=== PATIENT | male | born 1980 ===

== ENCOUNTER 2018-01-28 23:22 | Emergency (ER) | payer MEDICAID ==
[2018-01-28 23:48] VITALS: PULSE 81; RESP 16; TEMP 98.6; O2SAT 98
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
[2018-01-29] MEDS ORDERED: Tdap Vaccine 0.5 ml Vial (10-64 yrs) IM ONE ×2 (00:27→01:08)
[2018-01-29 01:48] VITALS: BP 142/78
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
== END 2018-01-29 01:56 | disposition home or self-care (01) ==
LOC: H.ER 23:22
DX: S01.01XA Laceration without foreign body of scalp, initial encounter (principal); W22.8XXA Striking against or struck by other objects, initial encounter; Y92.89 Other specified places as the place of occurrence of the external cause

== ENCOUNTER 2018-08-01 19:29 | Observation (INO) | payer MEDICAID ==
[2018-08-01] MEDS ORDERED: Sodium Chloride 0.9% 250 ML IV STA (20:06)
[2018-08-01 21:10] LABS: BASO % 0.5 % (0.0-2.0); EOS # 0.1 K/uL (0.0-0.7); EOS % 1.4 % (0.0-4.0); HEMOGLOBIN 13.3 g/dL (12.0-18.0); LYMPH # 1.6 K/uL (1.0-4.3); LYMPH % 21.2 % (20.0-40.0); MEAN CELL VOLUME 83.4 fl (80.0-94.0); MEAN CORPUSCULAR HEMOGLOBIN 28.2 pg (27.0-31.0); MEAN CORPUSCULAR HGB CONC 33.8 g/dL (33.0-37.0); MONO # 0.4 K/uL (0.0-0.8); NEUT # 5.2 K/uL (1.8-7.0); NEUT % 70.9 % (50.0-75.0); NRBC % 0.1 % (0.0-0.0); RBC 4.73 Mil/uL (4.40-5.90); RED CELL DISTRIBUTION WIDTH 13.2 % (11.5-14.5); WHITE BLOOD COUNT 7.3 K/uL (4.8-10.8)
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
[2018-08-01 21:19] LABS: ALB/GLOB RATIO 1.3 (1.0-2.1); ALBUMIN 4.4 g/dL (3.5-5.0); ALT/SGPT 26 U/L (21-72); AST/SGOT 25 U/L (17-59); BLOOD UREA NITROGEN 14 mg/dl (9-20); CALCIUM 9.1 mg/dL (8.4-10.2); GFR NON-AFRICAN AMERICAN > 60
[2018-08-01] MEDS ORDERED: levETIRAcetam 1,000 MG in Sodium Chloride 0.9% 100 ML IVPB ONE (22:04)
[2018-08-01] MEDS ORDERED: Benzoin Compund Tincture 30 ML TP ONE (22:10)
[2018-08-01] MEDS ORDERED: Insulin Regular 100 units/ml SC STA (22:25)
[2018-08-01] MEDS ORDERED: Metoprolol 1 mg/ml Inj IVP STA (22:26)
[2018-08-01] MEDS ORDERED: Metoprolol 1 mg/ml Inj ONE (23:32)
[2018-08-02] MEDS: Insulin Regular 100 units/ml SC SCH ×5 (02:05→23:00)
[2018-08-02 07:48] LABS: HEMOGLOBIN 12.5 g/dL (12.0-18.0); MEAN CELL VOLUME 83.3 fl (80.0-94.0); MEAN CORPUSCULAR HEMOGLOBIN 28.1 pg (27.0-31.0); MEAN CORPUSCULAR HGB CONC 33.7 g/dL (33.0-37.0); RBC 4.46 Mil/uL (4.40-5.90)
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
[2018-08-02 08:00] LABS: LDL CHOLESTEROL 108 mg/dL (0-129)
[2018-08-02 08:16] LABS: ALB/GLOB RATIO 1.3 (1.0-2.1); ALBUMIN 4.4 g/dL (3.5-5.0); ALT/SGPT 37 U/L (21-72); AST/SGOT 27 U/L (17-59); BLOOD UREA NITROGEN 11 mg/dl (9-20); CALCIUM 8.7 mg/dL (8.4-10.2); GFR NON-AFRICAN AMERICAN > 60; HDL CHOLESTEROL 50 MG/DL (30-70)
[2018-08-02] MEDS ORDERED: AMLODIPINE BESYLATE PO SCH (09:00)
--- NOTE | 2018-08-02 09:19 | RAD ---
Date of service: 08/01/2018 HISTORY: seizure COMPARISON: 12/12/2014 TECHNIQUE: 1 view obtained. FINDINGS: LUNGS: No active pulmonary disease. PLEURA: No significant pleural effusion identified, no pneumothorax apparent. CARDIOVASCULAR: No aortic atherosclerotic calcification present. Normal cardiac size. No pulmonary vascular congestion. OSSEOUS STRUCTURES: No significant abnormalities. VISUALIZED UPPER ABDOMEN: Normal. OTHER FINDINGS: None. IMPRESSION: No active disease.
[2018-08-02] MEDS: Pantoprazole 40 mg EC Tab PO SCH (10:36)
--- NOTE | 2018-08-02 11:54 | CARD ---
APPROVED REPORT Date of service: 08/01/2018 EKG Measurement Heart [id number] <Conclusion> Normal sinus rhythm Normal ECG
[2018-08-02] MEDS ORDERED: Insulin Regular 100 units/ml ONE (13:16)
--- NOTE | 2018-08-02 15:08 | CP.PCM.HP ---
History of Present Illness - History of Present Illness History of Present Illness: CC: Seizure. 38 y/o M, PMHx: HTN, Seizure, DMII, Depression. Pt was brought to [facility] on 08/01/18 via EMS to be evaluated for Seizure activity that last about a minute while at home, witnessed by in AM DOA, with associated LOC post ictal, headache, restless, confused, with not improvement. As per , last onset was 1 year ago. Worsening symptoms: Head laceration (2cm to scalp), nausea. Pt fell 2nd to seizure activity hitting his head against the wall. Aggravated factor: Pt missed his Seizure medication dose in AM on onset date. Denied: fever, chills, vomiting, diarrhea, abdominal pain, urinary symptoms, CP, palpitations, SOB, cough, sick contact, recent travel out of [facility]. CXR: No active disease. Head CT: No acute intracranial activity. EKG: Normal sinus rhythm. Present on Admission - Present on Admission Any Indicators Present on Admission: No Review of Systems - Constitutional Constitutional: Malaise, Weakness - EENT Eyes: Other (negative) Ears: Other (negative) Nose/Mouth/Throat: Other (negative) - Cardiovascular Cardiovascular: Rapid Heart Rate - Respiratory Respiratory: Other (negative) - Gastrointestinal Gastrointestinal: Nausea - Genitourinary Genitourinary: Other (negative) - Musculoskeletal Musculoskeletal: Other (Head pain 2nd to laceration.) - Integumentary Integumentary: Lesions - Neurological Neurological: Confusion, Memory Loss (post ictal), Syncope - Psychiatric Psychiatric: Other (negative) - Endocrine Endocrine: Other (negative) - Hematologic/Lymphatic Hematologic: Other (negative) Past Patient History - Past Medical History & Family History Pertinent Family History: Unknown - Past Social History Alcohol: None Drugs: Denies Home Situation {Lives}: With Family - CARDIAC Hx Cardiac Disorders: Yes Hx Hypertension: Yes - PULMONARY Hx Respiratory Disorders: No - NEUROLOGICAL Hx Neurological Disorder: Yes Hx Seizures: Yes - HEENT Hx HEENT Problems: No - RENAL Hx Chronic Kidney Disease: No - ENDOCRINE/METABOLIC Hx Endocrine Disorders: Yes Hx Diabetes Mellitus Type 2: Yes - HEMATOLOGICAL/ONCOLOGICAL Hx Blood Disorders: No - INTEGUMENTARY Hx Dermatological Problems: Yes Other/Comment: Scalp Dermatitis - MUSCULOSKELETAL/RHEUMATOLOGICAL Hx Musculoskeletal Disorders: No Hx Falls: No - GASTROINTESTINAL Hx Gastrointestinal Disorders: No - GENITOURINARY/GYNECOLOGICAL Hx Genitourinary Disorders: No - PSYCHIATRIC Hx Psychophysiologic Disorder: Yes Hx Depression: Yes - SURGICAL HISTORY Hx Surgeries: Yes Other/Comment: R Cranetomy - ANESTHESIA Hx Anesthesia: Yes Hx Anesthesia Reactions: No Meds Allergies/Adverse Reactions: Allergies Allergy/AdvReac Type Severity Reaction Status Date / Time No Known Allergies Allergy Verified 01/28/18 23:44 Physical Exam - Constitutional Appears: No Acute Distress - Head Exam Additional comments: Superficial laceration upper parietal scalp. - Eye Exam Eye Exam: PERRL - ENT Exam ENT Exam: Normal Exam - Neck Exam Neck exam: Positive for: Normal Inspection - Respiratory Exam Respiratory Exam: NORMAL BREATHING PATTERN - Cardiovascular Exam Cardiovascular Exam: REGULAR RHYTHM - GI/Abdominal Exam GI & Abdominal Exam: Normal Bowel Sounds, Soft - Extremities Exam Extremities exam: Positive for: normal inspection - Back Exam Back exam: NORMAL INSPECTION - Neurological Exam Neurological exam: Alert, CN II-XII Intact, Oriented x3, Reflexes Normal Additional comments: no motor/sensory deficit, no facial droop. - Psychiatric Exam Psychiatric exam: Normal Mood - Skin Skin Exam: Abrasion (to scalp), Dry, Warm Results - Vital Signs Recent Vital Signs: Last Vital Signs Temp 98.2 F 08/02/18 07:58 Pulse 96 H 08/02/18 10:33 Resp 18 08/02/18 07:58 BP 142/93 H 08/02/18 10:33 Pulse Ox 96 08/02/18 10:53 reviewed Liza - Labs Result Diagrams: 08/02/18 07:15 08/02/18 07:15 Labs: Laboratory Results - last 24 hr 08/01/18 08/01/18 08/01/18 20:41 21:06 21:06 WBC 7.3 RBC 4.73 Hgb 13.3 Hct 39.5 MCV 83.4 D MCH 28.2 MCHC 33.8 RDW 13.2 Plt Count 235 MPV 10.0 Neut % (Auto) 70.9 Lymph % (Auto) 21.2 [place] % (Auto) 6.0 Eos % (Auto) 1.4 Baso % (Auto) 0.5 Neut # (Auto) 5.2 Lymph # (Auto) 1.6 [place] # (Auto) 0.4 Eos # (Auto) 0.1 Baso # (Auto) 0.0 Sodium 139 Potassium 3.6 Chloride 100 Carbon Dioxide 24 Anion Gap 19 BUN 14 Creatinine 0.9 Est GFR ( Amer) > 60 Est GFR (Non-Af Amer) > 60 POC Glucose (mg/dL) 199 H Random Glucose 177 H Hemoglobin A1c Calcium 9.1 Phosphorus 2.8 Magnesium 2.0 Total Bilirubin 0.3 AST 25 ALT 26 Alkaline Phosphatase 54 Total Protein 8.0 Albumin 4.4 Globulin 3.5 Albumin/Globulin Ratio 1.3 Triglycerides Cholesterol LDL Cholesterol Direct HDL Cholesterol Thyroxine (T4) TSH 3rd Generation Carbamazepine 08/01/18 08/01/18 08/02/18 21:39 21:45 07:15 WBC RBC Hgb Hct MCV MCH MCHC RDW Plt Count MPV Neut % (Auto) Lymph % (Auto) [place] % (Auto) Eos % (Auto) Baso % (Auto) Neut # (Auto) Lymph # (Auto) [place] # (Auto) Eos # (Auto) Baso # (Auto) Sodium 139 Potassium 3.5 L Chloride 103 Carbon Dioxide 25 Anion Gap 15 BUN 11 Creatinine 0.8 Est GFR ( Amer) > 60 Est GFR (Non-Af Amer) > 60 POC Glucose (mg/dL) 249 H Random Glucose 123 H Hemoglobin A1c Calcium 8.7 Phosphorus Magnesium Total Bilirubin 0.3 AST 27 ALT 37 Alkaline Phosphatase 54 Total Protein 7.8 Albumin 4.4 Globulin 3.4 Albumin/Globulin Ratio 1.3 Triglycerides 138 Cholesterol 176 LDL Cholesterol Direct 108 HDL Cholesterol 50 Thyroxine (T4) 6.34 TSH 3rd Generation 2.44 Carbamazepine < 3.0 L 08/02/18 08/02/18 08/02/18 07:15 07:15 07:51 WBC 8.0 RBC 4.46 Hgb 12.5 Hct 37.1 MCV 83.3 MCH 28.1 MCHC 33.7 RDW 14.0 Plt Count 225 MPV Neut % (Auto) Lymph % (Auto) [place] % (Auto) Eos % (Auto) Baso % (Auto) Neut # (Auto) Lymph # (Auto) [place] # (Auto) Eos # (Auto) Baso # (Auto) Sodium Potassium Chloride Carbon Dioxide Anion Gap BUN Creatinine Est GFR ( Amer) Est GFR (Non-Af Amer) POC Glucose (mg/dL) 131 H Random Glucose Hemoglobin A1c 7.3 H Calcium Phosphorus Magnesium Total Bilirubin AST ALT Alkaline Phosphatase Total Protein Albumin Globulin Albumin/Globulin Ratio Triglycerides Cholesterol LDL Cholesterol Direct HDL Cholesterol Thyroxine (T4) TSH 3rd Generation Carbamazepine 08/02/18 13:12 WBC RBC Hgb Hct MCV MCH MCHC RDW Plt Count MPV Neut % (Auto) Lymph % (Auto) [place] % (Auto) Eos % (Auto) Baso % (Auto) Neut # (Auto) Lymph # (Auto) [place] # (Auto) Eos # (Auto) Baso # (Auto) Sodium Potassium Chloride Carbon Dioxide Anion Gap BUN Creatinine Est GFR ( Amer) Est GFR (Non-Af Amer) POC Glucose (mg/dL) 179 H Random Glucose Hemoglobin A1c Calcium Phosphorus Magnesium Total Bilirubin AST ALT Alkaline Phosphatase Total Protein Albumin Globulin Albumin/Globulin Ratio Triglycerides Cholesterol LDL Cholesterol Direct HDL Cholesterol Thyroxine (T4) TSH 3rd Generation Carbamazepine reviewed J.P. - EKG Data EKG comments: reviewed J.P. - Imaging and Cardiology Chest x-ray Status: Report reviewed by me (Liza) CT scan - head Status: Report reviewed by me (DavidePJhon) Assessment & Plan (1) Recurrent seizures Status: Acute Priority: High (2) Scalp laceration Status: Acute Priority: High (3) Hyperglycemia Status: Acute Priority: High (4) DMII (diabetes mellitus, type 2) Status: Chronic Priority: High (5) HTN (hypertension) Status: Chronic Priority: High - Assessment and Plan (Free Text) Plan: F/U EEG, continue Keppra, Coreg, Tricor, Insulin and rest of Tx. Neurology consult. - Date & Time Date: 08/02/18 Time: 13:30
[2018-08-03] MEDS: Insulin Regular 100 units/ml SC SCH ×2 (06:47→12:56)
[2018-08-03] MEDS ORDERED: Ergocalciferol 50,000 Intl Units Cap PO SCH (07:00)
[2018-08-03 07:52] VITALS: RESP 20
[2018-08-03] MEDS: Pantoprazole 40 mg EC Tab PO SCH (09:25)
--- NOTE | 2018-08-03 11:02 | PCM.EEG ---
Electroencephalogram Report - Electroencephalogram Report Procedure Date: 08/02/18 Medication: Keppra, Amlodipine, HCTZ Interpretation: Technical Information: This was a 16 -channel EEG, 1-channel EKG routine EEG performed using an [employer] machine. Electrodes were applied using the 10/20 international placement system. Start; 15;08 End; 16;07 Total; 59 min. Clinical Information: seizures. During resting wakefulness there was a symmetric posterior dominant rhythm at 8.5-9.5 Hz, 30-50 uV, which was reactive to eye opening and closing. Drowsiness (15;45) was associated with fragmentation of the posterior dominant rhythm and with slow roving eye movements. Light sleep was not recorded Hyperventilation was performed as well as photic stimulation was performed and there were no changes on the record. Focal abnormality; none ECG was associated with a normal sinus rhythm. Impression: This is a normal awake and drowsy and electroencephalogram.
--- NOTE | 2018-08-03 11:45 | CP.PCM.CON ---
History of Present Illness - History of Present Illness History of Present Illness: Neurology Consultation Consultation Requested by Dr. Garcia Mr. Beaulieu is a 38 y/o male with a PMHx of depression, niddm, htn, and seizures. Pt has a witnessed (pt's sister) seizure at home while he was watching a video on his cell phone. The episode lasted approx 1 minute and resolved spontaneously. During the seizure, the pt fell back and hit the back of his head. No dizziness, h/a, visual changes, n/v after the head injury per pt. Pt admits that he is normally well controlled with Tegretol and Lamictal, however, he skipped multiple doses of both medications on Thursday. Pt follows up with Dr. Lobato at [facility] for his seizure management. He was started on Keppra when he was first diagnosed with seizures, though it was stopped by Dr. Lobato; pt states to me "my doctor doesn't want me on that medicine." Pt last saw his neurologist approx 2 months ago; has a f/u appt in August. Noncontrast CT Head done in the ED shows no acute intracranial findings. EEG done was also reported to be normal. Currently he is aaox3, back to baseline, has no focal neurological deficits. ROS is unremarkable at this time and he offers no complaints aside from wanting to go home today. Review of Systems - Constitutional Constitutional: As Per HPI - EENT Eyes: As Per HPI Ears: As Per HPI Nose/Mouth/Throat: As Per HPI - Cardiovascular Cardiovascular: As Per HPI - Respiratory Respiratory: As Per HPI - Gastrointestinal Gastrointestinal: As Per HPI - Genitourinary Genitourinary: As Per HPI - Reproductive: Male Reproductive:Male: As Per HPI - Musculoskeletal Musculoskeletal: As Per HPI - Integumentary Integumentary: As Per HPI - Neurological Neurological: As Per HPI - Psychiatric Psychiatric: As Per HPI - Endocrine Endocrine: As Per HPI - Hematologic/Lymphatic Hematologic: As Per HPI Past Patient History - Infectious Disease Hx of Infectious Diseases: None - Tetanus Immunizations Tetanus Immunization: Unknown - Past Medical History & Family History Past Medical History?: Yes - Past Social History Smoking Status: Never Smoked Chewing Tobacco Use: No Cigar Use: No Alcohol: None Drugs: Denies Home Situation {Lives}: With Family Domestic Violence: Negative - CARDIAC Hx Cardiac Disorders: Yes Hx Hypertension: Yes - PULMONARY Hx Respiratory Disorders: No - NEUROLOGICAL Hx Neurological Disorder: Yes Hx Seizures: Yes - HEENT Hx HEENT Problems: No - RENAL Hx Chronic Kidney Disease: No - ENDOCRINE/METABOLIC Hx Endocrine Disorders: Yes Hx Diabetes Mellitus Type 2: Yes - HEMATOLOGICAL/ONCOLOGICAL Hx Blood Disorders: No - INTEGUMENTARY Hx Dermatological Problems: Yes Other/Comment: Scalp Dermatitis - MUSCULOSKELETAL/RHEUMATOLOGICAL Hx Musculoskeletal Disorders: No Hx Falls: Yes - GASTROINTESTINAL Hx Gastrointestinal Disorders: No - GENITOURINARY/GYNECOLOGICAL Hx Genitourinary Disorders: No - PSYCHIATRIC Hx Psychophysiologic Disorder: Yes Hx Depression: Yes Hx Substance Use: No - SURGICAL HISTORY Hx Surgeries: Yes Other/Comment: R Cranetomy - ANESTHESIA Hx Anesthesia: Yes Hx Anesthesia Reactions: No Meds Allergies/Adverse Reactions: Allergies Allergy/AdvReac Type Severity Reaction Status Date / Time No Known Allergies Allergy Verified 01/28/18 23:44 - Medications Medications: Current Medications Amlodipine Besylate (Norvasc) 10 mg PO DAILY [facility] Last Admin: 08/03/18 09:22 Dose: 10 mg Carvedilol (Coreg) 25 mg PO Q12 [facility] Last Admin: 08/03/18 11:05 Dose: 25 mg Ergocalciferol (Drisdol 50,000 Intl Units Cap) 1 cap PO QWK [facility] Last Admin: 08/03/18 09:23 Dose: 1 cap Fenofibrate (Tricor) 145 mg PO DAILY [facility] Last Admin: 08/03/18 11:05 Dose: 145 mg Hydrochlorothiazide (Hydrodiuril) 25 mg PO DAILY [facility] Last Admin: 08/03/18 11:06 Dose: 25 mg Insulin Human Regular (Humulin R) 0 units SC [facility]; Protocol Last Admin: 08/03/18 06:47 Dose: Not Given Levetiracetam (Keppra) 750 mg PO BID [facility] Last Admin: 08/03/18 11:05 Dose: 750 mg Pantoprazole Sodium (Protonix Ec Tab) 40 mg PO DAILY [facility] Last Admin: 08/03/18 09:25 Dose: 40 mg Physical Exam - Constitutional Appears: Well, Non-toxic, No Acute Distress - Head Exam Additional comments: superficial laceration upper parietal area; no bleeding - Eye Exam Eye Exam: EOMI, Normal appearance, PERRL Pupil Exam: NORMAL ACCOMODATION, PERRL - ENT Exam ENT Exam: Mucous Membranes Moist, Normal Exam - Neck Exam Neck exam: Positive for: Full Rom, Normal Inspection - Respiratory Exam Respiratory Exam: NORMAL BREATHING PATTERN - GI/Abdominal Exam GI & Abdominal Exam: Soft. absent: Distended Additional comments: obese - Extremities Exam Extremities exam: Positive for: full ROM, normal inspection - Back Exam Back exam: FULL ROM - Neurological Exam Neurological exam: Alert, CN II-XII Intact, Normal Gait, Oriented x3, Reflexes Normal Additional comments: No neurological deficits. No tremors or abnormal movements. - Psychiatric Exam Psychiatric exam: Normal Affect, Normal Mood - Skin Skin Exam: Normal Color Results - Vital Signs Recent Vital Signs: Last Vital Signs Temp 97.5 F L 08/03/18 07:51 Pulse 59 L 08/03/18 11:05 Resp 20 08/03/18 07:51 BP 120/67 08/03/18 11:05 Pulse Ox 99 08/03/18 07:51 - Labs Result Diagrams: 08/02/18 07:15 08/02/18 07:15 Labs: Laboratory Results - last 24 hr 08/02/18 08/02/18 08/02/18 07:15 13:12 19:43 POC Glucose (mg/dL) 179 H 127 H Hemoglobin A1c 7.3 H 08/02/18 08/03/18 08/03/18 22:48 05:32 11:02 POC Glucose (mg/dL) 130 H 127 H 175 H Hemoglobin A1c Assessment & Plan (1) Breakthrough seizure Assessment and Plan: Imaging reviewed: -EEG (08/02/18): normal -CT Head (08/01/18): No acute intracranial abnormalities. No significant findings to account for the clinical presentation. No significant interval change compared to the prior examination(s). -Pt is neurologically stable for d/c home today. He may continue his Lamictal and Tegretol as usual since his neurologist advises against Keppra for him. -I discussed at length with the pt regarding the importance of compliance with his AE medications. -He can f/u with his neurologist in the office as already scheduled for August. -Reconsult prn. Thank you for this consultation. Rochelle Badillo, EVER, [employer] d/w Dr. Aguila Status: Acute - Date & Time Date: 08/03/18 Time: 12:50
[2018-08-03 12:08] VITALS: BP 131/84; PULSE 66; TEMP 98.2; O2SAT 96
--- NOTE | 2018-08-03 12:35 | CP.PCM.PCO ---
Assessment & Plan - Assessment and Plan (Free Text) Assessment: pt. doing well, no seizure episodes, denies h/a , sob, cp seen by neuro, consult appreciated, pt. to continue home dose of tegretol/lamictal as per Neuro f/u with pmd and neurologist above d/w
--- NOTE | 2018-08-03 13:08 | CP.PCM.CON ---
History of Present Illness - History of Present Illness History of Present Illness: consult requested for history of depression pt is a 38 y/o M, PMHx: HTN, Seizure, DMII, Depression. Pt was brought to [facility] on 08/01/18 via EMS to be evaluated for Seizure activity pt on evaluation reported history of depression which started four years ago, resulting in hospitalization for a week, pt refusing to share the reasons, stated at current time he is under the care of a private psychiatrist and psychologist , receiving lexapro 30mg daily pt reported at current mental status mood is stable, no reported changes in sleep or appetite, denied perceptual disturbances, denied any current suicidal or homicidal ideation Past Patient History - Infectious Disease Hx of Infectious Diseases: None - Tetanus Immunizations Tetanus Immunization: Unknown - Past Medical History & Family History Past Medical History?: Yes - Past Social History Smoking Status: Never Smoked Chewing Tobacco Use: No Cigar Use: No Alcohol: None Drugs: Denies Home Situation {Lives}: With Family Domestic Violence: Negative - CARDIAC Hx Cardiac Disorders: Yes Hx Hypertension: Yes - PULMONARY Hx Respiratory Disorders: No - NEUROLOGICAL Hx Neurological Disorder: Yes Hx Seizures: Yes - HEENT Hx HEENT Problems: No - RENAL Hx Chronic Kidney Disease: No - ENDOCRINE/METABOLIC Hx Endocrine Disorders: Yes Hx Diabetes Mellitus Type 2: Yes - HEMATOLOGICAL/ONCOLOGICAL Hx Blood Disorders: No - INTEGUMENTARY Hx Dermatological Problems: Yes Other/Comment: Scalp Dermatitis - MUSCULOSKELETAL/RHEUMATOLOGICAL Hx Musculoskeletal Disorders: No Hx Falls: Yes - GASTROINTESTINAL Hx Gastrointestinal Disorders: No - GENITOURINARY/GYNECOLOGICAL Hx Genitourinary Disorders: No - PSYCHIATRIC Hx Psychophysiologic Disorder: Yes Hx Depression: Yes Hx Substance Use: No - SURGICAL HISTORY Hx Surgeries: Yes Other/Comment: R Cranetomy - ANESTHESIA Hx Anesthesia: Yes Hx Anesthesia Reactions: No Meds Allergies/Adverse Reactions: Allergies Allergy/AdvReac Type Severity Reaction Status Date / Time No Known Allergies Allergy Verified 01/28/18 23:44 - Medications Medications: Current Medications Amlodipine Besylate (Norvasc) 10 mg PO DAILY [facility] Last Admin: 08/03/18 09:22 Dose: 10 mg Carvedilol (Coreg) 25 mg PO Q12 [facility] Last Admin: 08/03/18 11:05 Dose: 25 mg Ergocalciferol (Drisdol 50,000 Intl Units Cap) 1 cap PO QWK [facility] Last Admin: 08/03/18 09:23 Dose: 1 cap Fenofibrate (Tricor) 145 mg PO DAILY [facility] Last Admin: 08/03/18 11:05 Dose: 145 mg Hydrochlorothiazide (Hydrodiuril) 25 mg PO DAILY [facility] Last Admin: 08/03/18 11:06 Dose: 25 mg Insulin Human Regular (Humulin R) 0 units SC [facility]; Protocol Last Admin: 08/03/18 12:56 Dose: 2 unit Pantoprazole Sodium (Protonix Ec Tab) 40 mg PO DAILY [facility] Last Admin: 08/03/18 09:25 Dose: 40 mg Results - Vital Signs Recent Vital Signs: Last Vital Signs Temp 98.2 F 08/03/18 12:07 Pulse 66 08/03/18 12:07 Resp 20 08/03/18 12:07 BP 131/84 08/03/18 12:07 Pulse Ox 96 08/03/18 12:07 - Labs Result Diagrams: 08/02/18 07:15 08/02/18 07:15 Labs: Laboratory Results - last 24 hr 08/02/18 08/02/18 08/02/18 13:12 19:43 22:48 POC Glucose (mg/dL) 179 H 127 H 130 H 08/03/18 08/03/18 05:32 11:02 POC Glucose (mg/dL) 127 H 175 H Assessment & Plan - Assessment and Plan (Free Text) Assessment: major depression in remission Plan: recommend patient to be restarted on lexapro 30mg daily
--- NOTE | 2018-08-03 13:53 | CP.PCM.PN ---
Subjective - Date & Time of Evaluation Date of Evaluation: 08/03/18 Objective - Vital Signs/Intake and Output Vital Signs (last 24 hours): Temp Pulse Resp BP Pulse Ox 98.2 F 66 20 131/84 96 08/03/18 12:07 08/03/18 12:07 08/03/18 12:07 08/03/18 12:07 08/03/18 12:07 Intake and Output: 08/03/18 08/03/18 06:59 18:59 Intake Total 860 Balance 860 - Medications Medications: Current Medications Amlodipine Besylate (Norvasc) 10 mg PO DAILY [facility] Last Admin: 08/03/18 09:22 Dose: 10 mg Carvedilol (Coreg) 25 mg PO Q12 [facility] Last Admin: 08/03/18 11:05 Dose: 25 mg Ergocalciferol (Drisdol 50,000 Intl Units Cap) 1 cap PO QWK [facility] Last Admin: 08/03/18 09:23 Dose: 1 cap Fenofibrate (Tricor) 145 mg PO DAILY [facility] Last Admin: 08/03/18 11:05 Dose: 145 mg Hydrochlorothiazide (Hydrodiuril) 25 mg PO DAILY [facility] Last Admin: 08/03/18 11:06 Dose: 25 mg Insulin Human Regular (Humulin R) 0 units SC [facility]; Protocol Last Admin: 08/03/18 12:56 Dose: 2 unit Pantoprazole Sodium (Protonix Ec Tab) 40 mg PO DAILY [facility] Last Admin: 08/03/18 09:25 Dose: 40 mg - Labs Labs: 08/02/18 07:15 08/02/18 07:15 Assessment and Plan (1) Recurrent seizures Status: Acute (2) Scalp laceration Status: Acute (3) Hyperglycemia Status: Acute (4) DMII (diabetes mellitus, type 2) Status: Chronic (5) HTN (hypertension) Status: Chronic
--- NOTE | 2018-08-03 14:31 | CP.PCM.DIS ---
Provider - Provider Date of Admission: 08/01/18 21:53 Attending physician: Wilfrido Rich MD Consults: 08/01/18 22:00 Neurology Consult Stat Comment: Consulting Provider: Glenn Aguila Consulting Physician: Glenn Aguila Reason for Consult: seizure 08/03/18 07:10 Psychiatry Consult Routine Comment: Consulting Provider: Jeni Messina Consulting Physician: Jeni Messina Reason for Consult: Hx of deppression Diagnosis - Discharge Diagnosis (1) Recurrent seizures Status: Acute Priority: High (2) Scalp laceration Status: Acute Priority: High (3) Hyperglycemia Status: Acute Priority: High (4) DMII (diabetes mellitus, type 2) Status: Chronic Priority: High (5) HTN (hypertension) Status: Chronic Priority: High Hospital Course - Lab Results Lab Results: Most Recent Lab Values WBC 8.0 K/uL (4.8-10.8) 08/02/18 07:15 RBC 4.46 Mil/uL (4.40-5.90) 08/02/18 07:15 Hgb 12.5 g/dL (12.0-18.0) 08/02/18 07:15 Hct 37.1 % (35.0-51.0) 08/02/18 07:15 MCV 83.3 fl (80.0-94.0) 08/02/18 07:15 MCH 28.1 pg (27.0-31.0) 08/02/18 07:15 MCHC 33.7 g/dL (33.0-37.0) 08/02/18 07:15 RDW 14.0 % (11.5-14.5) 08/02/18 07:15 Plt Count 225 K/uL (130-400) 08/02/18 07:15 MPV 10.0 fl (7.2-11.7) 08/01/18 21:06 Neut % (Auto) 70.9 % (50.0-75.0) 08/01/18 21:06 Lymph % (Auto) 21.2 % (20.0-40.0) 08/01/18 21:06 [place] % (Auto) 6.0 % (0.0-10.0) 08/01/18 21:06 Eos % (Auto) 1.4 % (0.0-4.0) 08/01/18 21:06 Baso % (Auto) 0.5 % (0.0-2.0) 08/01/18 21:06 Neut # (Auto) 5.2 K/uL (1.8-7.0) 08/01/18 21:06 Lymph # (Auto) 1.6 K/uL (1.0-4.3) 08/01/18 21:06 [place] # (Auto) 0.4 K/uL (0.0-0.8) 08/01/18 21:06 Eos # (Auto) 0.1 K/uL (0.0-0.7) 08/01/18 21:06 Baso # (Auto) 0.0 K/uL (0.0-0.2) 08/01/18 21:06 Sodium 139 mmol/l (132-148) 08/02/18 07:15 Potassium 3.5 MMOL/L (3.6-5.0) L 08/02/18 07:15 Chloride 103 mmol/L (98-107) 08/02/18 07:15 Carbon Dioxide 25 mmol/L (22-30) 08/02/18 07:15 Anion Gap 15 (10-20) 08/02/18 07:15 BUN 11 mg/dl (9-20) 08/02/18 07:15 Creatinine 0.8 mg/dl (0.8-1.5) 08/02/18 07:15 Est GFR ( Amer) > 60 08/02/18 07:15 Est GFR (Non-Af Amer) > 60 08/02/18 07:15 POC Glucose (mg/dL) 175 mg/dL (65-110) H 08/03/18 11:02 Random Glucose 123 mg/dL (75-110) H 08/02/18 07:15 Hemoglobin A1c 7.3 % (4.2-6.5) H 08/02/18 07:15 Calcium 8.7 mg/dL (8.4-10.2) 08/02/18 07:15 Phosphorus 2.8 mg/dl (2.5-4.5) 08/01/18 21:06 Magnesium 2.0 MG/DL (1.6-2.3) 08/01/18 21:06 Total Bilirubin 0.3 mg/dl (0.2-1.3) 08/02/18 07:15 AST 27 U/L (17-59) 08/02/18 07:15 ALT 37 U/L (21-72) 08/02/18 07:15 Alkaline Phosphatase 54 U/L (38-126) 08/02/18 07:15 Total Protein 7.8 G/DL (6.3-8.2) 08/02/18 07:15 Albumin 4.4 g/dL (3.5-5.0) 08/02/18 07:15 Globulin 3.4 gm/dL (2.2-3.9) 08/02/18 07:15 Albumin/Globulin Ratio 1.3 (1.0-2.1) 08/02/18 07:15 Triglycerides 138 mg/DL (0-149) 08/02/18 07:15 Cholesterol 176 mg/dL (0-199) 08/02/18 07:15 LDL Cholesterol Direct 108 mg/dL (0-129) 08/02/18 07:15 HDL Cholesterol 50 MG/DL (30-70) 08/02/18 07:15 Thyroxine (T4) 6.34 ug/dl (5.5-11.0) 08/02/18 07:15 TSH 3rd Generation 2.44 mIU/ML (0.46-4.68) 08/02/18 07:15 Carbamazepine < 3.0 ug/mL (4.0-12.0) L 08/01/18 21:39 Discharge Exam - Head Exam Head Exam: NORMOCEPHALIC (stellate superficial laceration upper parietal scalp, hemostatic, nongaping) Discharge Plan - Follow Up Plan Condition: GUARDED Disposition: HOME/ ROUTINE Instructions: Seizures, Adult (DC) Additional Instructions: follow up with primary MD and neurologist in 1 week Referrals: Levy Rome MD [Medical Doctor] - Wilfrido Rich MD [Staff Provider] - Glenn Aguila MD [Medical Doctor] -
== END 2018-08-03 13:30 | disposition home or self-care (01) ==
LOC: H.ER 19:29 → H.ERHOLD 21:53 → H.TEL 08-02 23:07
PROVIDERS: ADMIT Internal Medicine Pulmonary Disease; ATTEND Internal Medicine Pulmonary Disease
DX: G40.802 Other epilepsy, not intractable, without status epilepticus (principal); E11.65 Type 2 diabetes mellitus with hyperglycemia; S01.01XA Laceration without foreign body of scalp, initial encounter; F32.5 Major depressive disorder, single episode, in full remission; G31.9 Degenerative disease of nervous system, unspecified; G93.89 Other specified disorders of brain; I10 Essential (primary) hypertension; W18.39XA Other fall on same level, initial encounter; Z79.84 Long term (current) use of oral hypoglycemic drugs; Y92.89 Other specified places as the place of occurrence of the external cause
CPT/HCPCS: 70450; 71045; 80053; 80061; 80156; 80175; 82948; 83036; 83735; 84100; 84436; 84443; 85025; 85027; 93005; 95812; 96365; 96372; 96374; 99285; G0378; J1953; J2060; J2405; J7030